=== PATIENT | female | born 1970 | race Caucasian/White ===

== ENCOUNTER 2018-08-20 16:06 | Emergency (ER) | payer SELFPAY ==
--- NOTE | 2018-08-20 16:18 | Emergency Department Report ---
Blank Doc - Documentation Documentation: This is a 48-year-old female that presents with nausea vomiting and abdominal pain x2 days. Also stated has vaginal discharge. Denies any radiation of pain. Denies any other complaints. Patient is unsure if she is . Denies any vaginal bleeding. Patient is speaking in greek and used google translation during interview and exam. Exam: Tenderness to abdominal diffuse Abdominal distention noted. This initial assessment diagnostic orders/clinical plan/treatment(s) is/are subject to change based on patient's health status, clinical progression and re- assessment by fellow clinical providers in the ED. Further treatment and workup at subsequent clinical providers discretion. Patient/guardians urged not to elope from ED s their condition may be serious if not clinically assessed and managed. Initial orders include: 1-patient sent to [facility] for further evaluation and treatment. 2- Labs 3- UA
[2018-08-20 16:23] VITALS: BP 169/104
[2018-08-20 16:51] LABS: Basophils # (Auto) 0.1 K/mm3 (0.0-0.1); Basophils % (Auto) 0.9 % (0.0-1.8); Eosinophils # (Auto) 0.1 K/mm3 (0.0-0.4); Eosinophils % (Auto) 0.9 % (0.0-4.3); Hemoglobin 14.9 gm/dl (10.1-14.3); Lymphocytes # (Auto) 2.4 K/mm3 (1.2-5.4); Lymphocytes % (Auto) 21.8 % (13.4-35.0); Mean Corpuscular HGB Conc 34 % (30-34); Mean Corpuscular Volume 90 fl (79-97); Monocytes # (Auto) 0.7 K/mm3 (0.0-0.8); Monocytes % (Auto) 6.7 % (0.0-7.3); Platelet Count 323 K/mm3 (140-440); Red Blood Count 4.91 M/mm3 (3.65-5.03); Red Cell Distribution Width 12.6 % (13.2-15.2)
[2018-08-20 18:00] LABS: Alanine Aminotransferase 14 units/L (7-56); Albumin 4.4 g/dL (3.9-5); BUN/Creatinine Ratio 16; Blood Urea Nitrogen 8 mg/dL (7-17); Hemolysis Index 43
[2018-08-20 21:59] LABS: Bilirubin,Urine NEG (Negative); Blood,Urine NEG (Negative); Color,Urine Yellow (Yellow); Mucus,Urine 3+ /HPF
--- NOTE | 2018-08-20 22:14 | Emergency Department Report ---
ED Abdominal Pain HPI - General Chief Complaint: Abdominal Pain Stated Complaint: ABD PAIN Time Seen by Provider: 08/20/18 16:13 Source: patient Mode of arrival: Ambulatory Limitations: No Limitations - History of Present Illness Initial Comments: 48-year-old female comes in complaining of abdominal pain that started about 12 PM. Patient reports that the pain is located around the umbilicus. Patient reports nothing makes it better walking makes it worse. Patient denies any fever chills denies any nausea no vomiting. She reports that the pain is intermittent and sharp and may last a minute. Patient is taking nothing for pain. Patient reports that her last menstrual period started today. Patient denies any diarrhea. Or urinary symptoms. MD Complaint: abdominal pain -: This afternoon Time: 12:00 Location: periumbilical Radiation: LLQ, RLQ Severity scale (0 -10): 10 Quality: cramping Improves With: nothing Worsens With: movement Treatments Prior to Arrival: other (none) - Related Data LMP Date: 08/20/18 Previous Rx's Medication Instructions Recorded Last Taken Type Ibuprofen [Motrin 600 MG tab] 600 mg PO Q8H PRN #21 tablet 08/20/18 Unknown Rx metroNIDAZOLE [Flagyl] 500 mg PO Q8HR 7 Days #21 tablet 08/20/18 Unknown Rx Allergies Allergy/AdvReac Type Severity Reaction Status Date / Time No Known Allergies Allergy Unverified 08/20/18 17:50 ED Review of Systems ROS: Stated complaint: ABD PAIN Other details as noted in HPI Comment: All other systems reviewed and negative Gastrointestinal: abdominal pain. denies: nausea, vomiting Genitourinary: denies: urgency, dysuria, discharge ED Past Medical Hx - Past Medical History Previous Medical History?: Yes Additional medical history: vaginal delivery x 2 - Surgical History Past Surgical History?: Yes Additional Surgical History: abdominal surgery - Social History Smoking Status: Never Smoker Substance Use Type: None - Medications Home Medications: Home Medications Medication Instructions Recorded Confirmed Last Taken Type Ibuprofen [Motrin 600 MG tab] 600 mg PO Q8H PRN #21 tablet 08/20/18 Unknown Rx metroNIDAZOLE [Flagyl] 500 mg PO Q8HR 7 Days #21 tablet 08/20/18 Unknown Rx ED Physical Exam - General Limitations: No Limitations General appearance: alert, in no apparent distress - Head Head exam: Present: atraumatic, normocephalic - Eye Eye exam: Present: EOMI - ENT ENT exam: Present: mucous membranes moist - Neck Neck exam: Present: normal inspection - Respiratory Respiratory exam: Present: normal lung sounds bilaterally. Absent: respiratory distress - Cardiovascular Cardiovascular Exam: Present: regular rate, normal rhythm. Absent: systolic murmur, diastolic murmur, rubs, gallop - GI/Abdominal GI/Abdominal exam: Present: soft, distended, tenderness. Absent: guarding, rebound, rigid - External exam: Present: normal external exam Speculum exam: Present: vaginal discharge. Absent: erythema, cervical discharge Bi-manual exam: Present: normal bi-manual exam. Absent: cervical motion tendernes - Back Exam Back exam: Present: normal inspection, full ROM - Neurological Exam Neurological exam: Present: alert, oriented X3 - Psychiatric Psychiatric exam: Present: normal affect, normal mood - Skin Skin exam: Present: warm, dry, intact, normal color. Absent: rash ED Course Vital Signs 08/20/18 08/21/18 16:20 00:23 Temperature 97.9 F 97.9 F Pulse Rate 118 H 100 H Respiratory 18 18 Rate Blood Pressure 169/104 O2 Sat by Pulse 100 98 Oximetry ED Medical Decision Making - Lab Data Result diagrams: 08/20/18 16:25 08/20/18 16:25 Laboratory Results - last 24 hr 08/20/18 08/20/18 08/20/18 16:25 16:25 16:25 WBC 11.1 H RBC 4.91 Hgb 14.9 H Hct 44.0 H MCV 90 MCH 30 MCHC 34 RDW 12.6 L Plt Count 323 Lymph % (Auto) 21.8 Crook % (Auto) 6.7 Eos % (Auto) 0.9 Baso % (Auto) 0.9 Lymph # 2.4 Crook # 0.7 Eos # 0.1 Baso # 0.1 Seg Neutrophils % 69.7 Seg Neutrophils # 7.7 Sodium 139 Potassium 3.2 L Chloride 100.2 Carbon Dioxide 27 Anion Gap 15 BUN 8 Creatinine 0.5 L Estimated GFR > 60 BUN/Creatinine Ratio 16 Glucose 131 H Calcium 9.0 Total Bilirubin 0.50 AST 16 ALT 14 Alkaline Phosphatase 81 Total Protein 8.0 Albumin 4.4 Albumin/Globulin Ratio 1.2 Lipase 53 HCG, Quant 1.05 Urine Color Urine Turbidity Urine pH Ur Specific [place] Urine Protein Urine Glucose (UA) Urine Ketones Urine Blood Urine Nitrite Urine Bilirubin Urine Urobilinogen Ur Leukocyte Esterase Urine WBC (Auto) Urine RBC (Auto) U Epithel Cells (Auto) Urine Mucus 08/20/18 Unknown WBC RBC Hgb Hct MCV MCH MCHC RDW Plt Count Lymph % (Auto) Crook % (Auto) Eos % (Auto) Baso % (Auto) Lymph # Crook # Eos # Baso # Seg Neutrophils % Seg Neutrophils # Sodium Potassium Chloride Carbon Dioxide Anion Gap BUN Creatinine Estimated GFR BUN/Creatinine Ratio Glucose Calcium Total Bilirubin AST ALT Alkaline Phosphatase Total Protein Albumin Albumin/Globulin Ratio Lipase HCG, Quant Urine Color Yellow Urine Turbidity Slightly-cloudy Urine pH 6.0 Ur Specific [place] 1.027 Urine Protein 30 mg/dl Urine Glucose (UA) Neg Urine Ketones Neg Urine Blood Neg Urine Nitrite Neg Urine Bilirubin Neg Urine Urobilinogen 4.0 Ur Leukocyte Esterase Tr Urine WBC (Auto) 5.0 Urine RBC (Auto) 3.0 U Epithel Cells (Auto) 7.0 Urine Mucus 3+ - Radiology Data Radiology results: report reviewed Patient: JEFE KEMP MR#: [id number] : 1970 Acct:[id number] Age/Sex: 48 / F ADM Date: 08/20/18 Loc: ED Attending Dr: Ordering Physician: YOHAN EDGAR Date of Service: 08/20/18 Procedure(s): CT abdomen pelvis w con Accession Number(s): [id number] cc: YOHAN EDGAR FINAL REPORT PROCEDURE: CT ABDOMEN PELVIS W CON TECHNIQUE: Computerized axial tomography of the abdomen and pelvis was performed after the IV injection of iodinated nonionic contrast. HISTORY: mynor umbilicus pain COMPARISON: No prior studies are available for comparison. FINDINGS: Visualized lower thorax: No significant abnormality. Liver: Normal size and attenuation. Spleen: Normal size and attenuation. Gallbladder and biliary system: Normal. Pancreas: Normal. Adrenals: Normal. Kidneys: Both kidneys have normal size. No hydronephrosis. No renal stones or masses. GI tract: No obstruction. Ileus or enteritis. The cecum, appendix colon are normal.. Lymph nodes and mesentery: Normal. Vasculature: Normal. Bladder: Normal. Reproductive organs: Uterus is normal there has been some surgery in the left lower pelvis. No pelvic masses.. Peritoneum: No free fluid. Musculoskeletal structures: No significant abnormality. Other: There is a tiny fat containing umbilical hernia. IMPRESSION: There is no evidence intestinal or urinary tract obstruction. No ileus or enteritis. The appendix is normal. There is a tiny fat containing umbilical hernia. Transcribed By: [facility] Dictated By: JAGDEEP MCNEAL MD Electronically Authenticated By: JAGDEEP MCNEAL MD Signed Date/Time: 08/20/182330 DD/ 29 TD/TT: 08/20/182329 - Medical Decision Making Patient has been evaluated by this provider in fast track. CT with contrast of abdomen Wet prep Chlamydia and gonorrhea has been sent to the lab. Wet prep shows greater than 20% clue cells with many PMN cells. Critical care attestation.: If time is entered above; I have spent that time in minutes in the direct care of this critically ill patient, excluding procedure time. ED Disposition Clinical Impression: Bacterial vaginosis Umbilical hernia Qualifiers: Obstruction and gangrene presence: without obstruction or gangrene Qualified Code(s): K42.9 - Umbilical hernia without obstruction or gangrene Disposition: - TO HOME OR SELFCARE Is pt being admited?: No Does the pt Need Aspirin: No Condition: Stable Instructions: Bacterial Vaginosis (ED), Abdominal Pain (ED) Additional Instructions: Please complete antibiotics as prescribed. Ibuprofen for pain management. U have a small tiny fat containing hernia at your umbilicus/bellybutton. He also has a vaginal infection that is treated by Flagyl. I have referred to to general surgery to have ear small tiny fat hernia evaluated. Por favor complete los antibiticos segn lo prescrito. Ibuprofeno para el manejo del dolor. Tiene ron pequea y pequea grasa que contiene hernia en el ombligo / ombligo. l tambin tiene ron infeccin vaginal que es tratada por Flagyl. Me he referido a la ciruga general para tener ron hernia yeison pequea en el odo evaluada. Prescriptions: Ibuprofen [Motrin 600 MG tab] 600 mg PO Q8H PRN #21 tablet PRN Reason: Pain metroNIDAZOLE [Flagyl] 500 mg PO Q8HR 7 Days #21 tablet Referrals: MAXIMILIANO THAKUR MD [Primary Care Provider] - 3-5 Days ALFRED VANCE MD [Staff Physician] - 3-5 Days Forms: STI Treatment and Prevention, Accompanied Note Print Language: BELARUSIAN
[2018-08-20] MEDS ORDERED: TYLENOL PO ONE (22:18)
--- NOTE | 2018-08-20 23:31 | Cat Scan Report ---
FINAL REPORT PROCEDURE: CT ABDOMEN PELVIS W CON TECHNIQUE: Computerized axial tomography of the abdomen and pelvis was performed after the IV inject ion of iodinated nonionic contrast. HISTORY: mynor umbilicus pain COMPARISON: No prior studies are available for comparison. FINDINGS: Visualized lower thorax: No significant abnormality. Liver: Normal size and attenuation. Spleen: Normal size and attenuation. Gallbladder and biliary system: Normal. Pancreas: Normal. Adrenals: Normal. Kidneys: Both kidneys have normal size. No hydronephrosis. No renal stones or masses. GI tract: No obstruction. Ileus or enteritis. The cecum, appendix colon are normal.. Lymph nodes and mesentery: Normal. Vasculature: Normal. Bladder: Normal. Reproductive organs: Uterus is normal there has been some surgery in the left lower pelvis. No pelvic masses.. Peritoneum: No free fluid. Musculoskeletal structures: No significant abnormality. Other: There is a tiny fat containing umbilical hernia. IMPRESSION: There is no evidence intestinal or urinary tract obstruction. No ileus or enteritis. The appendix is normal. There is a tiny fat containing umbilical hernia.
== END 2018-08-21 00:26 | disposition home or self-care (01) ==
LOC: ED 16:06
DX: K42.9 Umbilical hernia without obstruction or gangrene (principal); N76.0 Acute vaginitis; B96.89 Other specified bacterial agents as the cause of diseases classified elsewhere
CPT/HCPCS: 36415; 74177; 80053; 81001; 83690; 84702; 85025; 87086; 87210; 87591; 99284; Q9967